=== PATIENT | female | born 1935 | race Caucasian/White ===

== ENCOUNTER → 2018-03-13 | Outpatient (CLI) | payer MEDICARE, OTHER ==
[~2018-03-13] MED LIST: ACET325 PO; AMLO5 PO; ASCO500; ASPI325; ASPI325 PO; ATEN50 PO; ATOR10; ATOR20 PO; CLON.1; CLON.1TP; CLOP75 PO; DIAZIDE; DIGESTIVE ADVANTAGE PO; DIGO.125 PO; FURO40 PO; GLUC500; HEART MED; HYDACE5; LACT10SY PO; LEVSOD100; LEVSOD137 PO; LISI20 PO; MAGCIT300 PO; METO25ER; MSM1000; POTA10T; POTA10T PO; SPIHYD; TOCO400; WARF5
[2018-03-15 13:08] LABS: Stool Occult Bld Immuno 1 Positive (NEGATIVE)
== END | disposition home or self-care (01) ==
LOC: LAB EV 13:00
PROVIDERS: Internal Medicine Gastroenterology
DX: Z13.9 Encounter for screening, unspecified (principal); K76.0 Fatty (change of) liver, not elsewhere classified; R19.4 Change in bowel habit; R11.2 Nausea with vomiting, unspecified
CPT/HCPCS: 82274

== ENCOUNTER → 2018-03-16 | Outpatient (CLI) | payer MEDICARE, OTHER ==
[2018-03-17 13:08] LABS: Stool Occult Bld Immuno 1 Positive (NEGATIVE)
== END | disposition home or self-care (01) ==
LOC: LAB 07:19 → LAB SHORT 07:19
PROVIDERS: Internal Medicine Gastroenterology
DX: Z13.9 Encounter for screening, unspecified (principal); K76.0 Fatty (change of) liver, not elsewhere classified; R11.2 Nausea with vomiting, unspecified; R19.4 Change in bowel habit
CPT/HCPCS: 82274

== ENCOUNTER → 2018-03-17 | Outpatient (CLI) | payer MEDICARE, OTHER ==
[2018-03-20 07:12] LABS: 5-HIAA, URINE 1.7 mg/L (Undefined); CREATININE, URINE 37.6 mg/dL (Not Estab.)
== END | disposition home or self-care (01) ==
LOC: LAB EV 08:00 → LAB FUT 03-04 10:45
PROVIDERS: Internal Medicine Gastroenterology
DX: Z13.9 Encounter for screening, unspecified (principal); R19.4 Change in bowel habit; R11.2 Nausea with vomiting, unspecified; K76.0 Fatty (change of) liver, not elsewhere classified
CPT/HCPCS: 81050; 82274; 82570; 83497

== ENCOUNTER 2018-08-15 09:58 | Emergency (ER) | payer MEDICARE, OTHER ==
[~2018-08-15] VITALS: Ht 182.9 cm; Wt 90.7 kg
[~2018-08-15 09:58] MED LIST changes: +ANORO ELLIPTA1 EACH; +CARV25 PO; +Coumadin5 MG PO; +MOTION RELIEF25 MG PO
[2018-08-15 10:17] LABS: BASOPHILS ABSOLUTE AUTO 0.02 K/mm3 (0.00-0.23); BASOPHILS PERCENT AUTO 0 % (0-2); EOSINOPHILS ABSOLUTE AUTO 0.08 K/mm3 (0.00-0.68); EOSINOPHILS PERCENT AUTO 2 % (0-6); Hematocrit 36.1 % (33.0-51.0); Hemoglobin 11.9 g/dL (11.5-16.0); IMMATURE GRAN ABSOLUTE AUTO 0.02 K/mm3 (0.00-0.10); IMMATURE GRAN PERCENT AUTO 0 % (0-1); LYMPHOCYTES ABSOLUTE AUTO 0.75 K/mm3 (0.84-5.20); LYMPHOCYTES PERCENT AUTO 17 % (21-46); MONOCYTES ABSOLUTE AUTO 0.44 K/mm3 (0.16-1.47); MONOCYTES PERCENT AUTO 10 % (4-13); Mean Corpuscular HGB 32.2 pg (26.0-34.0); Mean Corpuscular Volume 98 fL (80-100); Mean Platelet Volume 9.6 fL (9.1-12.4); NEUTROPHILS ABSOLUTE AUTO 3.22 K/mm3 (1.96-9.15); NEUTROPHILS PERCENT AUTO 71 % (41-73); Platelet Count 179 K/mm3 (150-400); RDW Coefficient Variation 14.1 % (11.7-14.2); RDW Standard Deviation 50.8 fL (35.1-46.3); Red Blood Cell Count 3.69 M/mm3 (3.80-5.20); White Blood Cell Count 4.53 K/mm3 (4.00-11.30)
[2018-08-15 10:35] LABS: Alanine Aminotransfer (ALT/SGP 14 U/L (12-78); Albumin, Blood 3.1 g/dL (3.4-5.0); Alk Phos 41 U/L (50-136); Anion Gap 6 mmol/L (6-16); Aspartate Aminotrans (AST/SGOT 12 U/L (12-37); Bilirubin, Total 0.5 mg/dL (0.1-1.0); Blood Urea Nitrogen 13 mg/dL (8-24); Bun/Creatinine Ratio 20.8 (12.0-20.0); CO2, Blood 26 mmol/L (21-32); Calcium, Blood 8.8 mg/dL (8.5-10.1); Chloride, Blood 111 mmol/L (98-108); Creatinine, Blood 0.63 mg/dL (0.40-1.00); Globulin, Blood 3.2 g/dL (2.2-4.0); Glomerular Filtration Rate >60 (60-); Glucose, Blood 118 mg/dL (70-99); Potassium, Blood 3.7 mmol/L (3.5-5.5); Sodium, Blood 143 mmol/L (136-145); Total Protein, Blood 6.3 g/dL (6.4-8.2)
[2018-08-15] MEDS ORDERED: Zithromax250 MG PO (12:23)
== END 2018-08-15 13:57 | disposition home or self-care (01) ==
LOC: ER 09:58
PROVIDERS: Internal Medicine
DX: J18.1 Lobar pneumonia, unspecified organism (principal); Z88.0 Allergy status to penicillin; Z88.2 Allergy status to sulfonamides; Z91.040 Latex allergy status; Z91.048 Other nonmedicinal substance allergy status; Z79.899 Other long term (current) drug therapy; Z79.01 Long term (current) use of anticoagulants; I10 Essential (primary) hypertension; E03.9 Hypothyroidism, unspecified; I48.91 Unspecified atrial fibrillation; Z86.73 Personal history of transient ischemic attack (TIA), and cerebral infarction without residual deficits; Z87.891 Personal history of nicotine dependence
CPT/HCPCS: 71046; 80053; 85025; 93005; 93010; 94640; 96365; 99285-25; J0456; J7050

== ENCOUNTER 2018-08-26 00:11 | Day surgery (SDC) | payer MEDICARE, OTHER ==
[~2018-08-26 00:11] MED LIST changes: +Zithromax250 MG PO
[2018-08-26] MEDS ORDERED: Align4 MG PO (18:52)
== END 2018-08-26 14:12 | disposition home or self-care (01) ==
LOC: ATC 00:11
DX: I48.2 Chronic atrial fibrillation (principal); I71.4 Abdominal aortic aneurysm, without rupture; Z86.711 Personal history of pulmonary embolism
CPT/HCPCS: 96372; J1650

== ENCOUNTER 2018-08-27 01:56 | Day surgery (SDC) | payer MEDICARE, OTHER ==
[~2018-08-27 01:56] MED LIST changes: +Align4 MG PO
== END 2018-08-27 08:45 | disposition home or self-care (01) ==
LOC: ATC 01:56
DX: I48.2 Chronic atrial fibrillation (principal); I71.4 Abdominal aortic aneurysm, without rupture; Z86.711 Personal history of pulmonary embolism; Z79.01 Long term (current) use of anticoagulants
CPT/HCPCS: 96372; J1650

== ENCOUNTER 2018-08-28 08:13 | Day surgery (SDC) | payer MEDICARE, OTHER ==
--- NOTE | 2018-08-28 08:38 | NUR ---
INR WAS 1.3 ON ATC MACHINE.
== END 2018-08-28 08:35 | disposition home or self-care (01) ==
LOC: ATC 08:13
DX: I48.2 Chronic atrial fibrillation (principal); I71.4 Abdominal aortic aneurysm, without rupture; Z86.711 Personal history of pulmonary embolism; Z79.01 Long term (current) use of anticoagulants
CPT/HCPCS: 36416; 85610; 96372; J1650

== ENCOUNTER → 2019-03-11 | Outpatient (CLI) | payer MEDICARE, OTHER | END | disposition home or self-care (01) | LOC: LAB 09:12 → LAB SHORT 09:12 | DX: N30.01 Acute cystitis with hematuria (principal); R35.0 Frequency of micturition | CPT/HCPCS: 87077; 87086; 87186 ==

== ENCOUNTER 2019-05-06 21:50 | Inpatient (IN) | payer MEDICARE, OTHER ==
[~2019-05-06] VITALS: Ht 182.9 cm; Wt 92.0 kg
[2019-05-06] MEDS ORDERED: WARF5 PO ×2 (22:15→22:17)
[2019-05-06] MEDS ORDERED: WARF2.5 PO (22:16)
[2019-05-06 22:48] LABS: BASOPHILS ABSOLUTE AUTO 0.01 K/mm3 (0.00-0.23); BASOPHILS PERCENT AUTO 0 % (0-2); EOSINOPHILS PERCENT AUTO 0 % (0-6); Hematocrit 42.7 % (33.0-51.0); Hemoglobin 14.1 g/dL (11.5-16.0); IMMATURE GRAN ABSOLUTE AUTO 0.04 K/mm3 (0.00-0.10); IMMATURE GRAN PERCENT AUTO 0 % (0-1); LYMPHOCYTES ABSOLUTE AUTO 0.83 K/mm3 (0.84-5.20); LYMPHOCYTES PERCENT AUTO 8 % (21-46); MONOCYTES ABSOLUTE AUTO 0.52 K/mm3 (0.16-1.47); MONOCYTES PERCENT AUTO 5 % (4-13); Mean Corpuscular HGB 30.3 pg (26.0-34.0); Mean Corpuscular Volume 92 fL (80-100); Mean Platelet Volume 10.5 fL (9.1-12.4); NEUTROPHILS ABSOLUTE AUTO 8.76 K/mm3 (1.96-9.15); NEUTROPHILS PERCENT AUTO 86 % (41-73); Platelet Count 211 K/mm3 (150-400); RDW Coefficient Variation 14.1 % (11.7-14.2); RDW Standard Deviation 47.4 fL (35.1-46.3); Red Blood Cell Count 4.65 M/mm3 (3.80-5.20); White Blood Cell Count 10.16 K/mm3 (4.00-11.30)
[2019-05-06 23:00] LABS: Alanine Aminotransfer (ALT/SGP 13 U/L (12-78); Albumin, Blood 3.8 g/dL (3.4-5.0); Alk Phos 56 U/L (50-136); Anion Gap 6 mmol/L (6-16); Aspartate Aminotrans (AST/SGOT 29 U/L (12-37); Bilirubin, Total 0.5 mg/dL (0.1-1.0); Blood Urea Nitrogen 23 mg/dL (8-24); Bun/Creatinine Ratio 35.6 (12.0-20.0); CO2, Blood 28 mmol/L (21-32); Calcium, Blood 9.8 mg/dL (8.5-10.1); Chloride, Blood 107 mmol/L (98-108); Creatinine, Blood 0.65 mg/dL (0.40-1.00); Globulin, Blood 3.8 g/dL (2.2-4.0); Glomerular Filtration Rate >60 (60-); Glucose, Blood 129 mg/dL (70-99); Potassium, Blood 4.5 mmol/L (3.5-5.5); Sodium, Blood 141 mmol/L (136-145); Total Protein, Blood 7.6 g/dL (6.4-8.2)
[2019-05-06 23:41] LABS: International Normalized Ratio 1.84
[2019-05-07 05:38] LABS: Anion Gap 5 mmol/L (6-16); Blood Urea Nitrogen 23 mg/dL (8-24); CO2, Blood 29 mmol/L (21-32); Calcium, Blood 9.2 mg/dL (8.5-10.1); Chloride, Blood 107 mmol/L (98-108); Glomerular Filtration Rate >60 (60-); Glucose, Blood 125 mg/dL (70-99); Potassium, Blood 4.4 mmol/L (3.5-5.5); Sodium, Blood 141 mmol/L (136-145)
--- NOTE | 2019-05-07 07:47 | NUR ---
SUMMARY ADMITTED TONIGHT FOR SURGICAL CX REGARDING SBO. PT HAS REFUSED NG SINCE ER. NOW WITH EMESIS AND NO FLATUS,FEELS SHE MAY AGREE TO TUBE.
--- NOTE | 2019-05-07 11:22 | NUR ---
THERAPY: PT IN ROOM TO WORK WITH PATIENT.
--- NOTE | 2019-05-07 17:55 | NUR ---
PT HAS BEEN STABLE THIS SHIFT. PAIN MANAGED PER EMAR. PT MIN ASSIST OOB WITH WALKER. PT VOIDING WITH BSC. ATTENDS ON FOR COMFORT. NGT TO LIS WITH PALE YELLOW OUTPUT OF 400CC. NO FLATUS. PT HAD EMESIS AROUND TUBE THIS AM BUT HAS RESOLVED AFTER PRN NAUSEA MEDS. CONT IV FLUIDS ORDERED. PT ABLE TO HAVE ICE CHIPS. PAS TO BLE. PT WORKED WITH THERAPY WELL THIS AM. USES CALL LIGHT APPROPRIATELY. PLAN FOR SMALL BOWEL FOLLOW THROUGH THURSDAY.
[2019-05-07] MEDS ORDERED: FURO40 PO (18:01)
[2019-05-07] MEDS ORDERED: Vitamin D2000 UNIT PO (18:04)
[2019-05-07] MEDS ORDERED: ACET325 PO (18:05)
[2019-05-07] MEDS ORDERED: ANORO ELLIPTA1 EACH INH (18:05)
[2019-05-07] MEDS ORDERED: TUMERIC PO (18:06)
[2019-05-07] MEDS ORDERED: DOCU100 PO (18:08)
[2019-05-07] MEDS ORDERED: ALIGN PO (18:08)
--- NOTE | 2019-05-08 06:55 | NUR ---
SUMMARY PT WOKE WITH "NO PAIN" ABD REMAINS DISTENDED. NO FLATUS. NG REMAINS PATENT.
--- NOTE | 2019-05-08 17:05 | NUR ---
SUMMARY NO ACUTE CHANGES T/O SHIFT. PT HAS DENIED N/V AND PAIN T/O SHIFT. PT REPORTS PASSING FLATUS. MINIMAL OUTPUT FROM NG TUBE OF DARK GREEN. DAUGHTER AT BEDSIDE. CALL LIGHT IN REACH.
[2019-05-09 05:22] LABS: BASOPHILS ABSOLUTE AUTO 0.01 K/mm3 (0.00-0.23); BASOPHILS PERCENT AUTO 0 % (0-2); EOSINOPHILS ABSOLUTE AUTO 0.05 K/mm3 (0.00-0.68); EOSINOPHILS PERCENT AUTO 1 % (0-6); Hematocrit 37.9 % (33.0-51.0); Hemoglobin 12.2 g/dL (11.5-16.0); IMMATURE GRAN ABSOLUTE AUTO 0.02 K/mm3 (0.00-0.10); IMMATURE GRAN PERCENT AUTO 1 % (0-1); LYMPHOCYTES ABSOLUTE AUTO 0.91 K/mm3 (0.84-5.20); LYMPHOCYTES PERCENT AUTO 22 % (21-46); MONOCYTES ABSOLUTE AUTO 0.36 K/mm3 (0.16-1.47); MONOCYTES PERCENT AUTO 9 % (4-13); Mean Corpuscular HGB 30.6 pg (26.0-34.0); Mean Corpuscular HGB Conc 32.2 g/dL (31.5-36.5); NEUTROPHILS ABSOLUTE AUTO 2.89 K/mm3 (1.96-9.15); NEUTROPHILS PERCENT AUTO 68 % (41-73); Platelet Count 151 K/mm3 (150-400); RDW Coefficient Variation 13.9 % (11.7-14.2); RDW Standard Deviation 48.7 fL (35.1-46.3); Red Blood Cell Count 3.99 M/mm3 (3.80-5.20); White Blood Cell Count 4.24 K/mm3 (4.00-11.30)
[2019-05-09 05:24] LABS: Mean Corpuscular Volume 95 fL (80-100)
[2019-05-09 05:59] LABS: Anion Gap 6 mmol/L (6-16); Blood Urea Nitrogen 21 mg/dL (8-24); Bun/Creatinine Ratio 29.4 (12.0-20.0); CO2, Blood 29 mmol/L (21-32); Calcium, Blood 8.4 mg/dL (8.5-10.1); Chloride, Blood 108 mmol/L (98-108); Creatinine, Blood 0.71 mg/dL (0.40-1.00); Glomerular Filtration Rate >60 (60-); Glucose, Blood 87 mg/dL (70-99); Potassium, Blood 4.1 mmol/L (3.5-5.5); Sodium, Blood 143 mmol/L (136-145)
--- NOTE | 2019-05-09 06:48 | NUR ---
SUMMARY PT WISHING SBFT WILL OCCUR SOON SHE IS HOPEFUL TO POSSIBLY BE ALLOWED PO INTAKE? PT DENIED PAIN,NAUSEA TONIGHT.REPORTS CONT TO PASS FLATUS,NG DRNG REMAINS BILE GREEN. DAUGHTER AT BEDSIDE. SUPPORTIVE.
--- NOTE | 2019-05-09 09:00 | NUR ---
PT TO IMAGING FOR SBFT.
--- NOTE | 2019-05-09 16:34 | NUR ---
SHIFT SUMMARY SB FOLLOW THROUGH COMPLETED TODAY. PT CONT TO DO WELL. NGT CLAMPED THIS AFTERNOON AND PT TANNER WELL, SO NGT DC'D PER DR. MARY ORDERS AT THIS TIME. PT SLOWLY TANNER CLEAR LIQ DIET AND REPORTS PASSING GAS. HAVING LIQ BMS. DENIES ABD PAIN. IVF INFUSING PER ORDERS. PT UP IN CHAIR AND FAMILY AT BEDSIDE FOR SUPPORT. CALL LIGHT WITHIN REACH.
--- NOTE | 2019-05-10 01:25 | NUR ---
PT C/O "UNBEARABLE" PAIN SECONDARY TO NASAL ROCKET. PULLED 0.2 CC AIR FROM ROCKET. PT REPORTS RELIEF. PT REPORTS SCANT BLOOD FROM NOSE, DENIES FEELING BLOOD RUNNING DOWN THE BACK OF HER THROAT.
--- NOTE | 2019-05-10 03:46 | NUR ---
SHIFT SUMMARY: UMM RESTED VERY LITTLE DURING THE NIGHT. SHE HAS STRUGGLED WITH A NOSE BLEED THAT STARTED AFTER HER NG TUBE WAS PULLED YESTERDAY AFTERNOON. AFTER NURSING INTERVENTIONS FAILED, EYAD OCONNOR, RODRIGO PRESCRIBED AFRIN WHICH WAS ALSO UNSUCCESSFUL. EYAD PLACED A RHINO ROCKET IN THE RIGHT NARE WHICH SLOWED THE BLEEDING CONSIDERABLY AND UMM REPORTED THAT SHE NO LONGER FELT BLOOD TRICKLING DOWN HER THROAT. THIS NURSE REMOVED A SMALL AMOUNT OF AIR FROM THE ROCKET D/T PT COMPLAINTS OF "UNBEARABLE" PAIN AND PRESSURE. UMM HAS REPORTED ADEQUATE PAIN CONTROL WITH 0.5 MG DILAUDID IV. SHE IS ABLE TO MAKE HER NEEDS KNOWN. DAUGHTER AT BEDSIDE. SHE IS TOLERATING THE CLEAR LIQUID DIET WELL. SHE DENIES N/V. SHE IS A ONE PERSON ASSIST TO THE BATHROOM. ATTENDS IN PLACE FOR URGENCY/OCCASIONAL INCONTINENCE. PT IS HOPING TO GO HOME TODAY, BUT IS CONCERNED ABOUT THE BLEEDING PREVENTING HER FROM DOING SO. WILL REPORT TO DAY SHIFT RN.
--- NOTE | 2019-05-10 11:20 | NUR ---
RHINO ROCKET REMOVED FROM RIGHT NARE AT THIS TIME. PT TOLERATED WELL. SCANT AMOUNT OF RED NASAL DRAINAGE PRESENT.
--- NOTE | 2019-05-10 13:03 | NUR ---
ATTEMPTED TO CALL DR. MARY.
--- NOTE | 2019-05-10 13:29 | NUR ---
PT AND DAUGHTER EDUCATED ON HOW TO ADMINISTER LOVENOX INJECTIONS FOR HOME DISCHARGE. DAUGHTER VERBALIZED UNDERSTANDING OF HOW TO DO INJECTION THEN DEMONSTRATED.
--- NOTE | 2019-05-10 15:07 | NUR ---
Advance Directive education conducted. Patient is lying in bed and alert. Patient has gauze in her nose and explains that she has had a terrible nose bleed. Patient's daughter, Alivia is bedside. I explain about the importance and process of the Advance Directive and patient explains that she already has one on file at another hospital. I talk about the sections in the booklet and the importance of having the information in our records. They tell me that they will fill out the forms and return them to the hospital when patient returns this Thursday.
--- NOTE | 2019-05-10 16:16 | NUR ---
SHIFT SUMMARY SINCE REMOVAL OF RHINO ROCKET, PT HAS HAD SCANT NASAL BLEEDING. MEDICATING WITH ORAL TYLENOL FOR NOSE/HEAD PAIN R/T TO THE RHINO ROCKET. PT DENIES ABD PAIN. REPORTS PASSING GAS. TANNER REG DIET. UP WITH 1 SBA ASSIST TO BSC AND IS IN CHAIR CURRENTLY. POSSIBLE DC HOME THIS EVENING OR TOMORROW. DAUGHTER AT BEDSIDE FOR MOST OF DAY. CALL LIGHT WITHIN REACH.
[2019-05-10] MEDS ORDERED: Lovenox100 MG/1 M SC (17:08)
[2019-05-10] MEDS ORDERED: DEEP SEA44 ML (17:09)
--- NOTE | 2019-05-10 17:40 | NUR ---
DISCHARGE PT AND DAUGHTER EDUCATED ON AND RECEIVED PRINTED DISCHARGE INSTRUCTIONS AND VERB AN UNDERSTANDING. RX FOR LOVENOX FAXED TO [facility] PER PT REQUEST. HECTOR ORDERS FAXED TO [facility]. IV DC'D. PT SENT WITH ALCOHOL SWABS, GLOVES AND GAUZE. PT FINISHING DINNER AND THEN PLANS TO GET DRESSED AND GATHERING PERSONAL BELONGINGS TO GO HOME WITH.
== END 2019-05-10 17:55 | disposition home or self-care (01) | DRG 389 ==
LOC: ER 21:50 → SURS 05-07 02:22
PROVIDERS: Emergency Medicine; Hospitalist; ADMIT Internal Medicine
PROC: 0D9670Z Drainage of Stomach with Drainage Device, Via Natural or Artificial Opening (ICD-10-PCS; principal; 2019-05-07)
DX: K56.609 Unspecified intestinal obstruction, unspecified as to partial versus complete obstruction (principal); I48.20 Chronic atrial fibrillation, unspecified; I10 Essential (primary) hypertension; E03.9 Hypothyroidism, unspecified; J44.9 Chronic obstructive pulmonary disease, unspecified; Z88.0 Allergy status to penicillin; Z88.2 Allergy status to sulfonamides; Z79.01 Long term (current) use of anticoagulants; Z86.718 Personal history of other venous thrombosis and embolism; Z87.891 Personal history of nicotine dependence; Z88.5 Allergy status to narcotic agent; Z91.040 Latex allergy status; Z86.73 Personal history of transient ischemic attack (TIA), and cerebral infarction without residual deficits
CPT/HCPCS: 36415; 74177; 74250; 80048; 80053; 83690; 85025; 85610; 93005; 93010; 96361; 96374; 96375; 96376; 97110; 97116; 97162; 97530; 99285-25; A9270; J1170; J1650; J1885; J2405; J2765; J3480; J7120; Q9963; Q9967

== ENCOUNTER 2019-05-13 01:02 | Day surgery (SDC) | payer MEDICARE, OTHER ==
[~2019-05-13 01:02] MED LIST changes: +ALIGN PO; +ANORO ELLIPTA1 EACH INH; +DEEP SEA44 ML; +DOCU100 PO; +Lovenox100 MG/1 M SC; +TUMERIC PO; +Vitamin D2000 UNIT PO; +WARF2.5 PO; +WARF5 PO
--- NOTE | 2019-05-13 08:49 | NUR ---
LOVENOX 40MG DOSE: FINGER STICK INR IS 1.6 TODAY BARCODE WILL NOT SCAN ON 40MG, PT RECIEVES 35MG OF THIS DOSE WITH THE 100MG TOTALING 135MG OF LOVENOX
== END 2019-05-13 08:54 | disposition home or self-care (01) ==
LOC: ATC 01:02
DX: I48.11 Longstanding persistent atrial fibrillation (principal); Z88.0 Allergy status to penicillin; Z88.2 Allergy status to sulfonamides; Z88.5 Allergy status to narcotic agent; Z91.040 Latex allergy status; Z91.048 Other nonmedicinal substance allergy status
CPT/HCPCS: 36416; 85610; J1650

== ENCOUNTER 2019-05-14 02:17 | Day surgery (SDC) | payer MEDICARE, OTHER | END 2019-05-14 14:31 | disposition home or self-care (01) | LOC: ATC 02:17 | DX: I48.11 Longstanding persistent atrial fibrillation (principal) | CPT/HCPCS: 36416; 85610; 96372; J1650 ==

== ENCOUNTER 2019-05-17 00:35 | Day surgery (SDC) | payer MEDICARE, OTHER | END 2019-05-17 12:00 | disposition home or self-care (01) | LOC: ATC 00:35 | DX: I48.20 Chronic atrial fibrillation, unspecified (principal); I10 Essential (primary) hypertension; E03.9 Hypothyroidism, unspecified; Z88.2 Allergy status to sulfonamides; Z88.0 Allergy status to penicillin; Z88.5 Allergy status to narcotic agent; Z91.040 Latex allergy status; Z88.8 Allergy status to other drugs, medicaments and biological substances; Z87.891 Personal history of nicotine dependence; Z79.01 Long term (current) use of anticoagulants; Z79.899 Other long term (current) drug therapy; K56.609 Unspecified intestinal obstruction, unspecified as to partial versus complete obstruction ==

== ENCOUNTER → 2019-09-02 | Outpatient (CLI) | payer MEDICARE, OTHER | END | disposition home or self-care (01) | LOC: LAB SHORT 08:35 → LAB 08:35 | DX: N30.00 Acute cystitis without hematuria (principal) | CPT/HCPCS: 87077; 87086; 87186 ==

== ENCOUNTER 2019-12-19 10:23 | Emergency (ER) | payer MEDICARE, OTHER ==
[~2019-12-19] VITALS: Ht 182.9 cm; Wt 85.3 kg
[2019-12-19 11:10] LABS: BASOPHILS ABSOLUTE AUTO 0.01 K/mm3 (0.00-0.23); BASOPHILS PERCENT AUTO 0 % (0-2); EOSINOPHILS ABSOLUTE AUTO 0.06 K/mm3 (0.00-0.68); EOSINOPHILS PERCENT AUTO 2 % (0-6); Hematocrit 40.4 % (33.0-51.0); Hemoglobin 13.1 g/dL (11.5-16.0); IMMATURE GRAN ABSOLUTE AUTO 0.01 K/mm3 (0.00-0.10); IMMATURE GRAN PERCENT AUTO 0 % (0-1); LYMPHOCYTES ABSOLUTE AUTO 0.89 K/mm3 (0.84-5.20); LYMPHOCYTES PERCENT AUTO 24 % (21-46); MONOCYTES ABSOLUTE AUTO 0.28 K/mm3 (0.16-1.47); MONOCYTES PERCENT AUTO 8 % (4-13); Mean Corpuscular HGB 30.3 pg (26.0-34.0); Mean Corpuscular HGB Conc 32.4 g/dL (31.5-36.5); Mean Corpuscular Volume 94 fL (80-100); NEUTROPHILS ABSOLUTE AUTO 2.45 K/mm3 (1.96-9.15); NEUTROPHILS PERCENT AUTO 66 % (41-73); Platelet Count 181 K/mm3 (150-400); RDW Coefficient Variation 13.8 % (11.7-14.2); RDW Standard Deviation 47.6 fL (35.1-46.3); Red Blood Cell Count 4.32 M/mm3 (3.80-5.20)
[2019-12-19 11:19] LABS: Alanine Aminotransfer (ALT/SGP 13 U/L (12-78); Albumin, Blood 3.5 g/dL (3.4-5.0); Albumin/Globulin Ratio 0.9 (0.8-1.8); Alk Phos 59 U/L (50-136); Anion Gap 4 mmol/L (6-16); Aspartate Aminotrans (AST/SGOT 15 U/L (12-37); Bilirubin, Total 0.5 mg/dL (0.1-1.0); Blood Urea Nitrogen 14 mg/dL (8-24); Bun/Creatinine Ratio 20.4 (12.0-20.0); CO2, Blood 29 mmol/L (21-32); Calcium, Blood 9.3 mg/dL (8.5-10.1); Chloride, Blood 110 mmol/L (98-108); Creatinine, Blood 0.69 mg/dL (0.40-1.00); Globulin, Blood 3.7 g/dL (2.2-4.0); Glomerular Filtration Rate >60 (60-); Glucose, Blood 107 mg/dL (70-99); Potassium, Blood 3.9 mmol/L (3.5-5.5); Sodium, Blood 143 mmol/L (136-145); Total Protein, Blood 7.2 g/dL (6.4-8.2)
[2019-12-19] MEDS ORDERED: SALM50IP INH (11:28)
[2019-12-19 12:22] LABS: Source, Urine Voided
[2019-12-19 12:27] LABS: Appearance, Urine Hazy (Clear); Bilirubin, Urine Neg (Neg); Blood, Urine 2+ (Neg); Color, Urine Yellow (P-Yellow); Glucose Qualitative, Urine Neg (Neg); Ketones, Urine Neg (Neg); Leukocyte Esterase, Urine 3+ (Neg); Nitrite, Urine Pos (Neg); Protein, Urine 2+ (Neg); Urobilinogen, Urine NORM (Normal)
[2019-12-19 12:56] LABS: Bacteria Many /hpf; Squamous Epithelial Cells Few /hpf (Few); White Blood Cells, Urine TNTC /hpf (0-5)
[2019-12-19] MEDS ORDERED: Colace100 MG PO (18:16)
[2019-12-19] MEDS ORDERED: Miralax17 GM PO (18:16)
[2019-12-19] MEDS ORDERED: KEFLEX500 MG PO (18:16)
[2019-12-19 18:33] LABS: International Normalized Ratio 2.04
== END 2019-12-19 18:45 | disposition home or self-care (01) ==
LOC: ER 10:23
PROVIDERS: Emergency Medicine
DX: N39.0 Urinary tract infection, site not specified (principal); K59.00 Constipation, unspecified; K76.89 Other specified diseases of liver; T82.330A Leakage of aortic (bifurcation) graft (replacement), initial encounter; D72.819 Decreased white blood cell count, unspecified; I10 Essential (primary) hypertension; E03.9 Hypothyroidism, unspecified; I48.91 Unspecified atrial fibrillation; Z88.0 Allergy status to penicillin; Z88.2 Allergy status to sulfonamides; Z91.040 Latex allergy status; Z88.5 Allergy status to narcotic agent; Z91.09 Other allergy status, other than to drugs and biological substances; Z79.01 Long term (current) use of anticoagulants; Z79.899 Other long term (current) drug therapy; Z86.73 Personal history of transient ischemic attack (TIA), and cerebral infarction without residual deficits
CPT/HCPCS: 36415; 74177; 80053; 81001; 83605; 83690; 84484; 85025; 85610; 87077; 87086; 87186; 93005; 93010; 96361; 96365; 96366; 99284-25; A9270-GY; J0744; J7030; Q9967

== ENCOUNTER 2020-10-30 22:54 | Emergency (ER) | payer MEDICARE, OTHER ==
[~2020-10-30] VITALS: Ht 182.9 cm; Wt 86.2 kg
[~2020-10-30 22:54] MED LIST changes: +Colace100 MG PO; +KEFLEX500 MG PO; +Miralax17 GM PO; +SALM50IP INH
[2020-10-30 23:20] LABS: BASOPHILS ABSOLUTE AUTO 0.02 K/mm3 (0.00-0.23); BASOPHILS PERCENT AUTO 0 % (0-2); EOSINOPHILS ABSOLUTE AUTO 0.08 K/mm3 (0.00-0.68); EOSINOPHILS PERCENT AUTO 1 % (0-6); Hematocrit 42.2 % (33.0-51.0); Hemoglobin 14.1 g/dL (11.5-16.0); IMMATURE GRAN ABSOLUTE AUTO 0.03 K/mm3 (0.00-0.10); IMMATURE GRAN PERCENT AUTO 0 % (0-1); LYMPHOCYTES ABSOLUTE AUTO 0.86 K/mm3 (0.84-5.20); LYMPHOCYTES PERCENT AUTO 9 % (21-46); MONOCYTES ABSOLUTE AUTO 0.67 K/mm3 (0.16-1.47); MONOCYTES PERCENT AUTO 7 % (4-13); Mean Corpuscular HGB 30.6 pg (26.0-34.0); Mean Corpuscular HGB Conc 33.4 g/dL (31.5-36.5); Mean Corpuscular Volume 92 fL (80-100); Mean Platelet Volume 9.6 fL (9.1-12.4); NEUTROPHILS ABSOLUTE AUTO 8.04 K/mm3 (1.96-9.15); NEUTROPHILS PERCENT AUTO 83 % (41-73); Platelet Count 209 K/mm3 (150-400); RDW Standard Deviation 47.2 fL (35.1-46.3); Red Blood Cell Count 4.61 M/mm3 (3.80-5.20)
[2020-10-30 23:33] LABS: Albumin, Blood 3.3 g/dL (3.4-5.0); Albumin/Globulin Ratio 0.9 (0.8-1.8); Bilirubin, Total 0.8 mg/dL (0.1-1.0); Bun/Creatinine Ratio 24.1 (12.0-20.0); Calcium, Blood 9.4 mg/dL (8.5-10.1); Globulin, Blood 3.5 g/dL (2.2-4.0); Potassium, Blood 4.3 mmol/L (3.5-5.5); Total Protein, Blood 6.8 g/dL (6.4-8.2)
[2020-10-31 04:36] LABS: Source, Urine Voided
[2020-10-31 04:40] LABS: Appearance, Urine Clear (Clear); Bilirubin, Urine Neg (Neg); Blood, Urine 4+ (Neg); Color, Urine Red (P-Yellow); Glucose Qualitative, Urine Neg (Neg); Ketones, Urine Neg (Neg); Leukocyte Esterase, Urine 1+ (Neg); Nitrite, Urine Neg (Neg); Protein, Urine 3+ (Neg); Specific Gravity, Urine 1.005 (1.003-1.022); Urobilinogen, Urine 1+ (Normal)
[2020-10-31 04:43] LABS: Squamous Epithelial Cells Few /hpf (Few)
[2020-10-31 04:44] LABS: Amorphous Light (0-Heavy); Bacteria Few /hpf
[2020-10-31] MEDS ORDERED: ONDA4ODT MM (05:47)
[2020-10-31] MEDS ORDERED: DICY20 PO (05:47)
[2020-11-01] MEDS ORDERED: Bentyl20 MG PO (11:45)
[2020-11-01] MEDS ORDERED: HIPREX1 G1 PO (11:45)
[2020-11-01] MEDS ORDERED: ONDANSETRON TAB 4MG (11:46)
[2020-11-01] MEDS ORDERED: ONDA4ODT SL (14:57)
[2020-11-01] MEDS ORDERED: PROM25 PO (14:57)
== END 2020-10-31 09:20 | disposition home or self-care (01) ==
LOC: ER 22:54
PROVIDERS: Emergency Medicine
DX: R10.9 Unspecified abdominal pain (principal); R11.2 Nausea with vomiting, unspecified; K59.00 Constipation, unspecified; E03.9 Hypothyroidism, unspecified; I10 Essential (primary) hypertension; Z88.0 Allergy status to penicillin; Z88.2 Allergy status to sulfonamides; Z91.040 Latex allergy status; Z91.048 Other nonmedicinal substance allergy status; Z88.5 Allergy status to narcotic agent; Z79.01 Long term (current) use of anticoagulants; Z79.899 Other long term (current) drug therapy; Z79.890 Hormone replacement therapy
CPT/HCPCS: 51701; 74177; 80053; 81001; 83690; 85025; 87086; 93005; 93010; 96374-59; 96375; 99285-25; J2270; J2405; J2550; J7030; Q9967

== ENCOUNTER 2020-11-01 11:38 | Emergency (ER) | payer MEDICARE, OTHER ==
[~2020-11-01] VITALS: Ht 182.9 cm; Wt 86.2 kg
[~2020-11-01 11:38] MED LIST changes: +DICY20 PO; +ONDA4ODT MM
[2020-11-01] MEDS ORDERED: Bentyl20 MG PO (11:45)
[2020-11-01] MEDS ORDERED: HIPREX1 G1 PO (11:45)
[2020-11-01] MEDS ORDERED: ONDANSETRON TAB 4MG (11:46)
[2020-11-01 13:46] LABS: BASOPHILS ABSOLUTE AUTO 0.01 K/mm3 (0.00-0.23); BASOPHILS PERCENT AUTO 0 % (0-2); EOSINOPHILS ABSOLUTE AUTO 0.02 K/mm3 (0.00-0.68); EOSINOPHILS PERCENT AUTO 0 % (0-6); Hematocrit 38.6 % (33.0-51.0); Hemoglobin 12.4 g/dL (11.5-16.0); IMMATURE GRAN ABSOLUTE AUTO 0.02 K/mm3 (0.00-0.10); IMMATURE GRAN PERCENT AUTO 0 % (0-1); LYMPHOCYTES ABSOLUTE AUTO 0.83 K/mm3 (0.84-5.20); LYMPHOCYTES PERCENT AUTO 12 % (21-46); MONOCYTES ABSOLUTE AUTO 0.69 K/mm3 (0.16-1.47); MONOCYTES PERCENT AUTO 10 % (4-13); Mean Corpuscular HGB 30.2 pg (26.0-34.0); Mean Corpuscular HGB Conc 32.1 g/dL (31.5-36.5); Mean Corpuscular Volume 94 fL (80-100); Mean Platelet Volume 10.1 fL (9.1-12.4); NEUTROPHILS ABSOLUTE AUTO 5.45 K/mm3 (1.96-9.15); NEUTROPHILS PERCENT AUTO 78 % (41-73); Platelet Count 154 K/mm3 (150-400); RDW Coefficient Variation 14.5 % (11.7-14.2); RDW Standard Deviation 50.8 fL (35.1-46.3); Red Blood Cell Count 4.11 M/mm3 (3.80-5.20); White Blood Cell Count 7.02 K/mm3 (4.00-11.30)
[2020-11-01 13:57] LABS: International Normalized Ratio 2.65; Prothrombin Time Results 27.1 Sec (9.7-11.5)
[2020-11-01 14:05] LABS: Bun/Creatinine Ratio 39.6 (12.0-20.0); Creatinine, Blood 0.93 mg/dL (0.40-1.00); Potassium, Blood 4.1 mmol/L (3.5-5.5)
[2020-11-01] MEDS ORDERED: ONDA4ODT SL (14:57)
[2020-11-01] MEDS ORDERED: PROM25 PO (14:57)
== END 2020-11-01 17:45 | disposition home or self-care (01) ==
LOC: ER 11:38
PROVIDERS: Emergency Medicine
DX: R11.2 Nausea with vomiting, unspecified (principal); E86.0 Dehydration; K58.1 Irritable bowel syndrome with constipation; I10 Essential (primary) hypertension; E03.9 Hypothyroidism, unspecified; Z88.0 Allergy status to penicillin; Z88.2 Allergy status to sulfonamides; Z91.040 Latex allergy status; Z88.5 Allergy status to narcotic agent; Z91.048 Other nonmedicinal substance allergy status; Z79.01 Long term (current) use of anticoagulants; Z79.899 Other long term (current) drug therapy; Z79.890 Hormone replacement therapy
CPT/HCPCS: 80048; 84443; 85025; 85610; 99283; J7030

== ENCOUNTER → 2020-11-28 | Outpatient (CLI) | payer MEDICARE, OTHER ==
[~2020-11-28] MED LIST changes: +Bentyl20 MG PO; +HIPREX1 G1 PO; +ONDA4ODT SL; +ONDANSETRON TAB 4MG; +PROM25 PO
[2020-11-28 12:09] LABS: BASOPHILS PERCENT AUTO 0 % (0-2); EOSINOPHILS PERCENT AUTO 0 % (0-6); Hematocrit 40.5 % (33.0-51.0); Hemoglobin 13.2 g/dL (11.5-16.0); IMMATURE GRAN ABSOLUTE AUTO 0.02 K/mm3 (0.00-0.10); IMMATURE GRAN PERCENT AUTO 0 % (0-1); LYMPHOCYTES ABSOLUTE AUTO 0.68 K/mm3 (0.84-5.20); LYMPHOCYTES PERCENT AUTO 14 % (21-46); MONOCYTES ABSOLUTE AUTO 0.28 K/mm3 (0.16-1.47); MONOCYTES PERCENT AUTO 6 % (4-13); Mean Corpuscular HGB Conc 32.6 g/dL (31.5-36.5); Mean Corpuscular Volume 92 fL (80-100); Mean Platelet Volume 9.6 fL (9.1-12.4); NEUTROPHILS ABSOLUTE AUTO 3.84 K/mm3 (1.96-9.15); NEUTROPHILS PERCENT AUTO 80 % (41-73); Platelet Count 179 K/mm3 (150-400); RDW Coefficient Variation 14.4 % (11.7-14.2); RDW Standard Deviation 49.1 fL (35.1-46.3); White Blood Cell Count 4.82 K/mm3 (4.00-11.30)
[2020-11-28 12:25] LABS: Alanine Aminotransfer (ALT/SGP 17 U/L (12-78); Albumin, Blood 3.4 g/dL (3.4-5.0); Albumin/Globulin Ratio 0.8 (0.8-1.8); Alk Phos 50 U/L (50-136); Anion Gap 5 mmol/L (6-16); Aspartate Aminotrans (AST/SGOT 12 U/L (12-37); Bilirubin, Total 0.5 mg/dL (0.1-1.0); Blood Urea Nitrogen 18 mg/dL (8-24); Bun/Creatinine Ratio 25.3 (12.0-20.0); CO2, Blood 27 mmol/L (21-32); Calcium, Blood 9.8 mg/dL (8.5-10.1); Chloride, Blood 108 mmol/L (98-108); Creatinine, Blood 0.71 mg/dL (0.40-1.00); Globulin, Blood 4.3 g/dL (2.2-4.0); Glomerular Filtration Rate >60 (60-); Glucose, Blood 131 mg/dL (70-99); Potassium, Blood 4.2 mmol/L (3.5-5.5); Sodium, Blood 140 mmol/L (136-145); Total Protein, Blood 7.7 g/dL (6.4-8.2)
[2020-11-28 12:27] LABS: Thyroid Stimulating Hormone 0.484 uIU/mL (0.360-4.800)
== END ==
LOC: LAB 10:36 → LAB SHORT 10:36
PROVIDERS: Physician Assistant Medical
DX: E03.8 Other specified hypothyroidism (principal)
CPT/HCPCS: 36415; 80053; 84443; 85025

== ENCOUNTER 2021-03-04 18:13 | Emergency (ER) | payer MEDICARE, OTHER ==
[~2021-03-04] VITALS: Ht 182.9 cm; Wt 82.5 kg
[2021-03-04 19:42] LABS: BASOPHILS ABSOLUTE AUTO 0.02 K/mm3 (0.00-0.23); BASOPHILS PERCENT AUTO 0 % (0-2); EOSINOPHILS ABSOLUTE AUTO 0.11 K/mm3 (0.00-0.68); EOSINOPHILS PERCENT AUTO 2 % (0-6); Hemoglobin 13.7 g/dL (11.5-16.0); IMMATURE GRAN ABSOLUTE AUTO 0.03 K/mm3 (0.00-0.10); IMMATURE GRAN PERCENT AUTO 0 % (0-1); LYMPHOCYTES ABSOLUTE AUTO 1.25 K/mm3 (0.84-5.20); LYMPHOCYTES PERCENT AUTO 18 % (21-46); MONOCYTES ABSOLUTE AUTO 0.57 K/mm3 (0.16-1.47); MONOCYTES PERCENT AUTO 8 % (4-13); Mean Corpuscular HGB Conc 32.6 g/dL (31.5-36.5); Mean Corpuscular Volume 92 fL (80-100); Mean Platelet Volume 9.7 fL (9.1-12.4); NEUTROPHILS ABSOLUTE AUTO 4.84 K/mm3 (1.96-9.15); NEUTROPHILS PERCENT AUTO 71 % (41-73); Platelet Count 178 K/mm3 (150-400); Red Blood Cell Count 4.56 M/mm3 (3.80-5.20); White Blood Cell Count 6.82 K/mm3 (4.00-11.30)
[2021-03-04 19:56] LABS: Alanine Aminotransfer (ALT/SGP 21 U/L (12-78); Albumin, Blood 2.9 g/dL (3.4-5.0); Albumin/Globulin Ratio 0.8 (0.8-1.8); Alk Phos 47 U/L (50-136); Anion Gap 5 mmol/L (6-16); Aspartate Aminotrans (AST/SGOT 19 U/L (12-37); Bilirubin, Total 0.5 mg/dL (0.1-1.0); Blood Urea Nitrogen 20 mg/dL (8-24); Bun/Creatinine Ratio 23.2 (12.0-20.0); CO2, Blood 27 mmol/L (21-32); Calcium, Blood 9.5 mg/dL (8.5-10.1); Chloride, Blood 108 mmol/L (98-108); Creatinine, Blood 0.86 mg/dL (0.40-1.00); Globulin, Blood 3.8 g/dL (2.2-4.0); Glomerular Filtration Rate >60 (60-); Glucose, Blood 137 mg/dL (70-99); Potassium, Blood 4.5 mmol/L (3.5-5.5); Sodium, Blood 140 mmol/L (136-145); Total Protein, Blood 6.7 g/dL (6.4-8.2)
[2021-03-04 20:02] LABS: Source, Urine Catheter
[2021-03-04 20:05] LABS: Appearance, Urine Clear (Clear); Bilirubin, Urine Neg (Neg); Blood, Urine Neg (Neg); Color, Urine Yellow (P-Yellow); Glucose Qualitative, Urine Neg (Neg); Ketones, Urine Neg (Neg); Leukocyte Esterase, Urine 1+ (Neg); Nitrite, Urine Neg (Neg); Protein, Urine 2+ (Neg); Urobilinogen, Urine NORM (Normal)
[2021-03-04 20:56] LABS: Red Blood Cells, Urine 0-2 /hpf (0-2)
[2021-03-04 20:57] LABS: Bacteria Rare /hpf; Renal Epithelial Few /hpf (0-Rare); Squamous Epithelial Cells Rare /hpf (Few)
[2021-03-04 20:59] LABS: Transitional Epithelial Cells Rare /hpf (0-Rare)
[2021-03-04] MEDS ORDERED: HIPREX1 G1 PO (21:34)
[2021-03-04] MEDS ORDERED: SOLIFENACIN SUC10 MG PO (21:35)
== END 2021-03-05 01:23 | disposition home or self-care (01) ==
LOC: ER 18:13
PROVIDERS: Emergency Medicine
DX: K58.0 Irritable bowel syndrome with diarrhea (principal); I10 Essential (primary) hypertension; E03.9 Hypothyroidism, unspecified; I48.91 Unspecified atrial fibrillation; Z88.0 Allergy status to penicillin; Z88.2 Allergy status to sulfonamides; Z91.040 Latex allergy status; Z79.899 Other long term (current) drug therapy
CPT/HCPCS: 36415; 74177; 80053; 81001; 83690; 85025; 87086; 99284-25; J7030; P9612; Q9967

== ENCOUNTER 2021-03-14 23:28 | Emergency (ER) | payer MEDICARE, OTHER ==
[~2021-03-14] VITALS: Ht 182.9 cm; Wt 82.5 kg
[~2021-03-14 23:28] MED LIST changes: +SOLIFENACIN SUC10 MG PO
[2021-03-15 02:20] LABS: Albumin, Blood 2.9 g/dL (3.4-5.0); Albumin/Globulin Ratio 0.8 (0.8-1.8); Bilirubin, Total 0.6 mg/dL (0.1-1.0); Bun/Creatinine Ratio 21.6 (12.0-20.0); Calcium, Blood 9.4 mg/dL (8.5-10.1); Creatinine, Blood 1.02 mg/dL (0.40-1.00); Globulin, Blood 3.5 g/dL (2.2-4.0); Potassium, Blood 4.1 mmol/L (3.5-5.5); Total Protein, Blood 6.4 g/dL (6.4-8.2)
[2021-03-15 02:22] LABS: BASOPHILS ABSOLUTE AUTO 0.01 K/mm3 (0.00-0.23); BASOPHILS PERCENT AUTO 0 % (0-2); EOSINOPHILS ABSOLUTE AUTO 0.03 K/mm3 (0.00-0.68); EOSINOPHILS PERCENT AUTO 0 % (0-6); Hemoglobin 13.1 g/dL (11.5-16.0); IMMATURE GRAN ABSOLUTE AUTO 0.02 K/mm3 (0.00-0.10); IMMATURE GRAN PERCENT AUTO 0 % (0-1); LYMPHOCYTES PERCENT AUTO 9 % (21-46); MONOCYTES ABSOLUTE AUTO 1.05 K/mm3 (0.16-1.47); MONOCYTES PERCENT AUTO 11 % (4-13); Mean Corpuscular HGB 30.2 pg (26.0-34.0); Mean Corpuscular HGB Conc 32.8 g/dL (31.5-36.5); Mean Corpuscular Volume 92 fL (80-100); Mean Platelet Volume 9.5 fL (9.1-12.4); NEUTROPHILS ABSOLUTE AUTO 7.55 K/mm3 (1.96-9.15); NEUTROPHILS PERCENT AUTO 80 % (41-73); Platelet Count 205 K/mm3 (150-400); RDW Standard Deviation 47.8 fL (35.1-46.3); Red Blood Cell Count 4.34 M/mm3 (3.80-5.20); White Blood Cell Count 9.46 K/mm3 (4.00-11.30)
== END 2021-03-15 04:54 | disposition home or self-care (01) ==
LOC: ER 23:28
PROVIDERS: Student in an Organized Health Care Education/Training Program
DX: K52.9 Noninfective gastroenteritis and colitis, unspecified (principal); I10 Essential (primary) hypertension; E03.9 Hypothyroidism, unspecified; I48.91 Unspecified atrial fibrillation; Z86.73 Personal history of transient ischemic attack (TIA), and cerebral infarction without residual deficits; Z88.0 Allergy status to penicillin; Z88.2 Allergy status to sulfonamides; Z91.040 Latex allergy status; Z88.6 Allergy status to analgesic agent; Z91.048 Other nonmedicinal substance allergy status; Z79.01 Long term (current) use of anticoagulants; Z79.899 Other long term (current) drug therapy
CPT/HCPCS: 74177; 80053; 83690; 85025; 96374; 99284; J1885; Q9967

== ENCOUNTER → 2021-05-27 | Outpatient (CLI) | payer MEDICARE, OTHER ==
[~2021-05-27] MED LIST changes: +CONSTULOSE10 GM/155 PO
== END ==
LOC: LAB 10:43
DX: N30.90 Cystitis, unspecified without hematuria (principal)
CPT/HCPCS: 87077; 87086; 87186

== ENCOUNTER → 2021-09-04 | Outpatient (CLI) | payer MEDICARE, OTHER | LOC: LAB 11:00 → LAB SHORT 11:00 | DX: N30.01 Acute cystitis with hematuria (principal) | CPT/HCPCS: 87077; 87086; 87186 ==

== ENCOUNTER 2021-12-16 03:17 | Inpatient (IN) | payer MEDICARE, OTHER ==
[~2021-12-16] VITALS: Ht 182.9 cm; Wt 86.0 kg
[2021-12-16 03:35] LABS: BASOPHILS ABSOLUTE AUTO 0.01 K/mm3 (0.00-0.23); BASOPHILS PERCENT AUTO 0 % (0-2); EOSINOPHILS ABSOLUTE AUTO 0.02 K/mm3 (0.00-0.68); EOSINOPHILS PERCENT AUTO 0 % (0-6); Hematocrit 41.4 % (33.0-51.0); Hemoglobin 13.5 g/dL (11.5-16.0); IMMATURE GRAN ABSOLUTE AUTO 0.02 K/mm3 (0.00-0.10); IMMATURE GRAN PERCENT AUTO 0 % (0-1); LYMPHOCYTES ABSOLUTE AUTO 0.59 K/mm3 (0.84-5.20); LYMPHOCYTES PERCENT AUTO 9 % (21-46); MONOCYTES ABSOLUTE AUTO 0.52 K/mm3 (0.16-1.47); MONOCYTES PERCENT AUTO 8 % (4-13); Mean Corpuscular HGB 30.3 pg (26.0-34.0); Mean Corpuscular HGB Conc 32.6 g/dL (31.5-36.5); Mean Corpuscular Volume 93 fL (80-100); Mean Platelet Volume 9.6 fL (9.1-12.4); NEUTROPHILS ABSOLUTE AUTO 5.23 K/mm3 (1.96-9.15); NEUTROPHILS PERCENT AUTO 82 % (41-73); Platelet Count 197 K/mm3 (150-400); RDW Coefficient Variation 13.7 % (11.7-14.2); RDW Standard Deviation 46.6 fL (35.1-46.3); Red Blood Cell Count 4.45 M/mm3 (3.80-5.20); White Blood Cell Count 6.39 K/mm3 (4.00-11.30)
[2021-12-16 04:01] LABS: Albumin, Blood 3.6 g/dL (3.4-5.0); Albumin/Globulin Ratio 0.9 (0.8-1.8); Bilirubin, Total 0.4 mg/dL (0.1-1.0); Bun/Creatinine Ratio 18.1 (12.0-20.0); Calcium, Blood 9.6 mg/dL (8.5-10.1); Creatinine, Blood 0.66 mg/dL (0.40-1.00); Globulin, Blood 3.8 g/dL (2.2-4.0); Potassium, Blood 4.3 mmol/L (3.5-5.5); Total Protein, Blood 7.4 g/dL (6.4-8.2)
[2021-12-16 08:14] LABS: International Normalized Ratio 2.67; Prothrombin Time Results 26.3 Sec (9.7-11.5)
--- NOTE | 2021-12-16 08:53 | NUR ---
ADMIT NOTE: REPORT RECEIVED FROM CHRISSY JOLLEY IN ER. PT ADMITTED TO 327 AT 0820. PT A/O X 4, STANDBY ASSIST W/WALKER TO BATHROOM. PT DENIED ABD PAIN AND NAUSEA AT THIS TIME. PT AMBULATED TO BATHROOM AND URINATED CLEAR DARK YELLOW URINE. PT UNABLE TO REMEMBER ALL OF HER CURRENT HOME MEDICATIONS SO A FAMILY MEMBER WILL BRING LIST. RECONCILED WHICH MEDICATIONS SHE REMEMBERS. PT ORIENTED TO /CALL LIGHT. PT SITTING IN CHAIR AT THIS TIME.
--- NOTE | 2021-12-16 10:12 | NUR ---
ATTEMPTED BY [address] RN'S TO PL[address] NG TUBE BUT MET RESISTENCE AND UNABLE TO PUSH THROUGH SINUS CAVITY. PT EVENTUALLY REQUESTED TO STOP ATTEMPTING TO PLACE THE NG TUBE. PT IS NOT VOMITING AT THIS TIME AND REPORTS SHE HAS NO ABD PAIN AT THIS TIME. DR. TUCKER NOTIFIED BY LEAVING A DETAILED MESSAGE ON CELL PHONE.
[2021-12-16] MEDS ORDERED: FLUTICASONE-SA1 EAC8 IH (14:26)
[2021-12-16] MEDS ORDERED: MECL25 PO (14:31)
[2021-12-16] MEDS ORDERED: FLUT1DIS2 INH (14:31)
--- NOTE | 2021-12-16 14:33 | NUR ---
DAUGHTER SKYE CALLED AND WENT OVER MEDICATION LIST. HOME MEDICATION LIST RECONCILED AND COMPLETED.
--- NOTE | 2021-12-16 16:17 | NUR ---
Upon receiving a referral for spiritual care, I visit pt. Pt tells me about her medical problems, her family (she is very proud of her dtrs who are living in [place]) and her career in education. Pt asks for prayer for her medical situation to resolve without surgery. I gladly provide prayer along those lines. Pt voices appreciation for the visit and shows signs of increased peace. I will continue to remain available to pt and family
--- NOTE | 2021-12-16 19:48 | NUR ---
SHIFT SUMMARY: PT A/O X 4, STANDBY ASSIST TO BATHROOM. PT PAIN AND NAUSEA HAS BEEN WELL CONTROLLED. NONE GIVEN ON THIS SHIFT.ABD IS DISTENDED, HYPOACTIVE BS IN 3 QUADS, PT REPORTS PASSING GAS. PT CONTINUES TO HAVE NS AT 100/ HR RUNNING AND TOLERATING WELL. PLEASANT AND COOPERATIVE WITH CARE.
--- NOTE | 2021-12-17 03:07 | NUR ---
SHIFT SUMMARY 86 YR F ADMITTED ON 12/16/21 FOR SMALL BOWEL OBSTRUCTION. FULL CODE. NO ACUTE CHANGES THIS SHIFT. PT HAS HAD NO C/O N/V OR PAIN. SHE HAS BEEN VERY PLEASANT AND COOPERATIVE WITH CARE. SHE WATCHED TV FOR AWHILE THEN WENT TO SLEEP AND SLEPT FOR MOST OF THE NIGHT.
[2021-12-17 05:51] LABS: BASOPHILS ABSOLUTE AUTO 0.01 K/mm3 (0.00-0.23); BASOPHILS PERCENT AUTO 0 % (0-2); EOSINOPHILS ABSOLUTE AUTO 0.05 K/mm3 (0.00-0.68); EOSINOPHILS PERCENT AUTO 1 % (0-6); Hemoglobin 11.5 g/dL (11.5-16.0); IMMATURE GRAN PERCENT AUTO 0 % (0-1); LYMPHOCYTES ABSOLUTE AUTO 0.95 K/mm3 (0.84-5.20); LYMPHOCYTES PERCENT AUTO 21 % (21-46); MONOCYTES ABSOLUTE AUTO 0.48 K/mm3 (0.16-1.47); MONOCYTES PERCENT AUTO 11 % (4-13); Mean Corpuscular HGB 30.4 pg (26.0-34.0); Mean Corpuscular HGB Conc 31.9 g/dL (31.5-36.5); Mean Corpuscular Volume 95 fL (80-100); Mean Platelet Volume 9.7 fL (9.1-12.4); NEUTROPHILS ABSOLUTE AUTO 3.03 K/mm3 (1.96-9.15); NEUTROPHILS PERCENT AUTO 67 % (41-73); Platelet Count 164 K/mm3 (150-400); RDW Coefficient Variation 14.1 % (11.7-14.2); RDW Standard Deviation 49.4 fL (35.1-46.3); Red Blood Cell Count 3.78 M/mm3 (3.80-5.20); White Blood Cell Count 4.52 K/mm3 (4.00-11.30)
[2021-12-17 06:03] LABS: Calcium, Blood 8.1 mg/dL (8.5-10.1); Creatinine, Blood 0.61 mg/dL (0.40-1.00); Potassium, Blood 3.9 mmol/L (3.5-5.5)
--- NOTE | 2021-12-18 04:25 | NUR ---
SHIFT SUMMARY 86 YR F ADMITTED ON 12/16/21 FOR SMALL BOWEL OBSTRUCTION. FULL CODE. PT WAS GIVEN DILAUDID FOR PAIN THIS SHIFT AND SHE STATES THAT SHE HAD A VERY BAD REACTION TO IT. SHE STAED THAT SHE WAS SEEING THINGS THAT WERE NOT THERE SUCH A DESK IN THE CORNER AND CANTRELL THAT SHE WAS PICKING OUT OF THE AIR. SHE DID NOT LIKE THE WAY IT MADE HER FEEL AND SHE DOES NOT WANT TO "EVER TAKE IT AGAIN". SHE WAS CONCERENED THAT SHE HAD OVERDOSED AND THIS NURSE ASSURED HER THAT SHE WAS NOT GIVEN ENOUGH TO ACTUALLY OVERDOSE. THE CHEMICAL PROCESSING EQUIPMENT REPAIRER AND NURSE SPENT TIME W/ THE PT LISTENING TO HER CONCERNS AND SHE WAS VERY THANKFUL FOR THAT. SHE DID STATE THAT SHE FELT MUCH BETTER THIS SHIFT AFTER HAVING SEVERAL VERY LARGE BOWEL MOVEMENTS DURING THE DAY.
--- NOTE | 2021-12-18 07:31 | NUR ---
on 12/17/21 @ 1715 PT WAS GIVEN 12.5 MG OF CARVEDILOL PER EMAR. PRIOR BP @ 0853 WAS 113/68 AND AFTER CARVEDILOL BP WAS 84/59 @ 1909. @ 2036 BP HAD GONE BACK UP TO 133/66.
--- NOTE | 2021-12-18 19:56 | NUR ---
SHIFT SUMMARY: PT A/O X 4 STANDBY ASSIST PLEASANT AND COOPERATIVE WITH CARE. PT CONTINUES TO HAVE BM'S TODAY. SHE IS TOLERATING FULL LIQUID DIET. WARFARIN STARTED TONIGHT. PT REPORTED NO PAIN OR NAUSEA TODAY EXCEPT MILD HEADACHE WHICH SHE REFUSED OFFER OF TYLENOL FOR. DIET ADVANCED TO MECH SOFT FOR BREAKFAST.
--- NOTE | 2021-12-19 04:24 | NUR ---
SQUIRT MACHINE OPERATOR SUMMARY: A&Ox4. PLEASANT AND COOPERATIVE WITH CARE. SBA FOR AMBULATION TO AND FROM BATHROOM DURING THE NIGHT. C/O HEADACHE AT BEDTIME AND REQUESTED ONE APAP TABLET. STOOLING AND VOIDING WITHOUT DIFFICULTY. VSS. WILL REPORT TO ONCOMING RN.
[2021-12-19 06:12] LABS: International Normalized Ratio 2.41; Prothrombin Time Results 23.9 Sec (9.7-11.5)
--- NOTE | 2021-12-19 12:04 | NUR ---
DOCTOR PHONE CALL: PT SEEN BY DR. LOPEZ, NO NEW ORDERS AT THIS TIME. POSSIBLE DISCHARGE HOME WITH FAMILY. DR. LOPEZ SUGGESTED FOR TABLEAU ANALYST TO CALL DR. TUCKER FOR CONFIRMATION ON POSSIBLE DISCHARGE HOME. PT HAVING BOWEL MOVEMENTS, EATING A REGULAR DIET, NO NAUSEA OR VOMITING.
--- NOTE | 2021-12-19 17:03 | NUR ---
PT EDUCATED ON CONTIUNING HOME MEDICATIONS, FOLLOW UP WITH PCP IN 1 WEEK, AND REFERRAL FROM PCP FOR GI DOCTOR. PT PERSONAL BELONGINGS PACKED BY DAUGHTER. PT ESCORTED BY DASHA CISNEROS VIA WHEELCHAIR TO THE LOBBY. PT TRANSPORTED HOME BY DAUGHTER. PT IV REMOVED WITHOUT DIFFICULTY AND CATHETER INTACTED BY AKANKSHA KATE PRIOR TO DC.
--- NOTE | 2021-12-19 17:13 | NUR ---
THIS COMMUNITY SERVICES MANAGER HAS REVIEWED AND AGREES WITH ALL ASSESSMENT AND NOTES BY SHOLA DOBBINS.
== END 2021-12-19 15:31 | disposition home or self-care (01) | DRG 389 ==
LOC: ER 03:17 → MEDS 06:38 → ERHOLD 06:38 → MEDS 08:28
PROVIDERS: Emergency Medicine; Internal Medicine; ADMIT Family Medicine
DX: K56.600 Partial intestinal obstruction, unspecified as to cause (principal); I48.20 Chronic atrial fibrillation, unspecified; I10 Essential (primary) hypertension; J44.1 Chronic obstructive pulmonary disease with (acute) exacerbation; E03.9 Hypothyroidism, unspecified; I48.91 Unspecified atrial fibrillation; I71.40 Abdominal aortic aneurysm, without rupture, unspecified; Z96.652 Presence of left artificial knee joint; R79.1 Abnormal coagulation profile; K58.9 Irritable bowel syndrome, unspecified; Z90.710 Acquired absence of both cervix and uterus; Z88.0 Allergy status to penicillin; Z88.8 Allergy status to other drugs, medicaments and biological substances; Z91.040 Latex allergy status; Z86.73 Personal history of transient ischemic attack (TIA), and cerebral infarction without residual deficits; Z98.890 Other specified postprocedural states; Z90.89 Acquired absence of other organs; Z90.49 Acquired absence of other specified parts of digestive tract
CPT/HCPCS: 36415; 74177; 74250; 80048; 80053; 83690; 85025; 85610; 94640; 94664; 94760; 96374-59; 96375; 99285-25; A9270; C9113; J1170; J2405; J2550; J3010; J7030; Q9967

== ENCOUNTER → 2022-02-26 | Outpatient (CLI) | payer MEDICARE, OTHER ==
[~2022-02-26] MED LIST changes: +FLUT1DIS2 INH; +FLUTICASONE-SA1 EAC8 IH; +MECL25 PO
[2022-02-26 13:54] LABS: Source, Urine Clean Catch
[2022-02-26 14:31] LABS: Appearance, Urine Clear (Clear); Bilirubin, Urine Neg (Neg); Blood, Urine Neg (Neg); Color, Urine Yellow (P-Yellow); Glucose Qualitative, Urine Neg (Neg); Ketones, Urine Neg (Neg); Leukocyte Esterase, Urine 1+ (Neg); Nitrite, Urine Neg (Neg); Protein, Urine 1+ (Neg); Urobilinogen, Urine NORM (Normal)
[2022-02-26 14:39] LABS: Bacteria Few /hpf; Red Blood Cells, Urine 0-2 /hpf (0-2); Squamous Epithelial Cells Few /hpf (Few)
== END | disposition home or self-care (01) ==
LOC: LAB SHORT 10:45
PROVIDERS: Student in an Organized Health Care Education/Training Program
DX: N32.81 Overactive bladder (principal); N39.41 Urge incontinence
CPT/HCPCS: 81001; 87086

== ENCOUNTER 2022-11-02 08:51 | Inpatient (IN) | payer MEDICARE, OTHER ==
[~2022-11-02] VITALS: Ht 182.9 cm; Wt 88.0 kg
[2022-11-02 10:05] LABS: BASOPHILS ABSOLUTE AUTO 0.02 K/mm3 (0.00-0.23); BASOPHILS PERCENT AUTO 0 % (0-2); EOSINOPHILS ABSOLUTE AUTO 0.05 K/mm3 (0.00-0.68); EOSINOPHILS PERCENT AUTO 1 % (0-6); Hematocrit 41.8 % (33.0-51.0); Hemoglobin 13.9 g/dL (11.5-16.0); IMMATURE GRAN ABSOLUTE AUTO 0.01 K/mm3 (0.00-0.10); IMMATURE GRAN PERCENT AUTO 0 % (0-1); LYMPHOCYTES ABSOLUTE AUTO 0.58 K/mm3 (0.84-5.20); LYMPHOCYTES PERCENT AUTO 9 % (21-46); MONOCYTES ABSOLUTE AUTO 0.63 K/mm3 (0.16-1.47); MONOCYTES PERCENT AUTO 9 % (4-13); Mean Corpuscular HGB 30.5 pg (26.0-34.0); Mean Corpuscular HGB Conc 33.3 g/dL (31.5-36.5); Mean Corpuscular Volume 92 fL (80-100); Mean Platelet Volume 9.7 fL (9.1-12.4); NEUTROPHILS ABSOLUTE AUTO 5.46 K/mm3 (1.96-9.15); NEUTROPHILS PERCENT AUTO 81 % (41-73); Platelet Count 211 K/mm3 (150-400); RDW Coefficient Variation 13.8 % (11.7-14.2); RDW Standard Deviation 47.4 fL (35.1-46.3); Red Blood Cell Count 4.55 M/mm3 (3.80-5.20); White Blood Cell Count 6.75 K/mm3 (4.00-11.30)
[2022-11-02 10:41] LABS: Albumin, Blood 3.6 g/dL (3.4-5.0); Bilirubin, Total 0.5 mg/dL (0.1-1.0); Bun/Creatinine Ratio 15.8 (12.0-20.0); Calcium, Blood 9.8 mg/dL (8.5-10.1); Creatinine, Blood 0.7 mg/dL (0.40-1.00); Globulin, Blood 3.6 g/dL (2.2-4.0); Potassium, Blood 4.2 mmol/L (3.5-5.5); Total Protein, Blood 7.2 g/dL (6.4-8.2)
[2022-11-02 14:33] LABS: International Normalized Ratio 2.18; Prothrombin Time Results 21.9 Sec (9.7-11.5)
[2022-11-02 15:00] VITALS: BP 149/83
[2022-11-02] MEDS ORDERED: WARF2.5 PO (17:03)
[2022-11-02] MEDS ORDERED: TURMERIC500 M2 PO (17:07)
[2022-11-02] MEDS ORDERED: METHENAMINE HIPP PO (17:07)
[2022-11-02 18:24] LABS: Source, Urine Clean Catch
[2022-11-02 18:28] LABS: Appearance, Urine Clear (Clear); Bilirubin, Urine Neg (Neg); Blood, Urine Neg (Neg); Color, Urine Yellow (P-Yellow); Glucose Qualitative, Urine Neg (Neg); Ketones, Urine Neg (Neg); Leukocyte Esterase, Urine Neg (Neg); Nitrite, Urine Neg (Neg); Protein, Urine 1+ (Neg); Urobilinogen, Urine NORM (Normal)
[2022-11-02 20:51] VITALS: BP 122/66
[2022-11-03 04:11] VITALS: BP 117/68
--- NOTE | 2022-11-03 04:28 | NUR ---
PATIENT A/OX4, UP WITH 1 ASSIST TO BSC. REPORTS PAIN IS CONTROLLED AND DENIES ANY NAUSEA. CURRENLY NPO. BOWEL TONES RARE. A-FIB ON TELE, RATE CONTROLLED. IV TO L AC WNL, FLUIDS RUNNING. PLEASANT AND COOPERATIVE, ABLE TO MAKE NEEDS KNOWN. PATIENT SLEPT WELL THIS SHIFT.
[2022-11-03 05:42] LABS: BASOPHILS ABSOLUTE AUTO 0.01 K/mm3 (0.00-0.23); BASOPHILS PERCENT AUTO 0 % (0-2); EOSINOPHILS ABSOLUTE AUTO 0.04 K/mm3 (0.00-0.68); EOSINOPHILS PERCENT AUTO 1 % (0-6); Hemoglobin 11.4 g/dL (11.5-16.0); IMMATURE GRAN PERCENT AUTO 0 % (0-1); LYMPHOCYTES ABSOLUTE AUTO 0.84 K/mm3 (0.84-5.20); LYMPHOCYTES PERCENT AUTO 26 % (21-46); MONOCYTES ABSOLUTE AUTO 0.44 K/mm3 (0.16-1.47); MONOCYTES PERCENT AUTO 14 % (4-13); Mean Corpuscular HGB 30.5 pg (26.0-34.0); Mean Corpuscular HGB Conc 32.6 g/dL (31.5-36.5); Mean Corpuscular Volume 94 fL (80-100); Mean Platelet Volume 9.7 fL (9.1-12.4); NEUTROPHILS ABSOLUTE AUTO 1.92 K/mm3 (1.96-9.15); NEUTROPHILS PERCENT AUTO 59 % (41-73); Platelet Count 158 K/mm3 (150-400); RDW Coefficient Variation 14.1 % (11.7-14.2); RDW Standard Deviation 48.5 fL (35.1-46.3); Red Blood Cell Count 3.74 M/mm3 (3.80-5.20); White Blood Cell Count 3.25 K/mm3 (4.00-11.30)
[2022-11-03 05:55] LABS: International Normalized Ratio 2.19
[2022-11-03 06:08] LABS: Albumin, Blood 2.7 g/dL (3.4-5.0); Anion Gap 3 mmol/L (6-16); Blood Urea Nitrogen 10 mg/dL (8-24); Bun/Creatinine Ratio 15.7 (12.0-20.0); CO2, Blood 28 mmol/L (21-32); Calcium, Blood 8.4 mg/dL (8.5-10.1); Chloride, Blood 112 mmol/L (98-108); Creatinine, Blood 0.64 mg/dL (0.40-1.00); Glomerular Filtration Rate 85 (60-); Glucose, Blood 97 mg/dL (70-99); Phosphorus, Blood 3.4 mg/dL (2.5-4.9); Potassium, Blood 4.3 mmol/L (3.5-5.5); Sodium, Blood 143 mmol/L (136-145)
[2022-11-03 07:07] VITALS: BP 123/82
[2022-11-03 11:09] LABS: Hematocrit 36.6 % (33.0-51.0); Hemoglobin 11.8 g/dL (11.5-16.0)
[2022-11-03 16:33] VITALS: BP 140/78
--- NOTE | 2022-11-03 16:36 | NUR ---
SHIFT SUMMARY PT AxOx4. PLEASANT AND COOPERATIVE WITH CARE. PT REPORTS PASSING SOME GAS THIS SHIFT, BUT STILL NO BM. DENIES NAUSEA/VOMITING. PT HAS BEEN UP IN CHAIR AND GONE FOR SHORT WALKS TO ENCOURAGE BM. PT STILL NPO. PT HAD ECHO TODAY. PER TELE, PT HAD SEVERAL PAUSES BETWEEN 2-3 SECONDS. PT WAS ASYMPTOMATIC AT THESE TIMES. MADE AWARE OF BEAT PAUSES. DAUGHTER IN ROOM TODAY FOR VISIT, UPDATED ON PLAN OF CARE. PT IS CURRENTLY RESTING IN HER BED WITH CALL LIGHT IN REACH. PT DENIES ANY NEEDS AT THIS TIME.
[2022-11-03 20:27] VITALS: BP 150/85
[2022-11-04 02:43] VITALS: BP 135/81
--- NOTE | 2022-11-04 04:58 | NUR ---
SHIFT SUMMARY PT A/OX4, USES BEDSIDE COMMODE WITH ONE PERSON ASSIST WITH FWW. PT COMPLAINED OF HEADACHE EARLY ON IN THE SHIFT, MEDICATED PER EMAR, AND PT STATES COMFORT HAS IMPROVED. CALM AND COOPERATIVE WITH CARE, ON ROOM AIR, NPO WITH FLUIDS RUNNING AT 75 ML/HR. TELE WITH AFIB. PT'S ABDOMEN IS TENDER TO THE TOUCH WITH BOWEL SOUNDS PRESENT. PT SLEPT WEEL T/O MOST OF THE NIGHT AND CALLS ALIYAH
[2022-11-04 05:11] LABS: BASOPHILS ABSOLUTE AUTO 0.01 K/mm3 (0.00-0.23); BASOPHILS PERCENT AUTO 0 % (0-2); EOSINOPHILS ABSOLUTE AUTO 0.05 K/mm3 (0.00-0.68); EOSINOPHILS PERCENT AUTO 2 % (0-6); Hemoglobin 11.5 g/dL (11.5-16.0); IMMATURE GRAN ABSOLUTE AUTO 0.01 K/mm3 (0.00-0.10); IMMATURE GRAN PERCENT AUTO 0 % (0-1); LYMPHOCYTES ABSOLUTE AUTO 0.76 K/mm3 (0.84-5.20); LYMPHOCYTES PERCENT AUTO 27 % (21-46); MONOCYTES ABSOLUTE AUTO 0.35 K/mm3 (0.16-1.47); MONOCYTES PERCENT AUTO 13 % (4-13); Mean Corpuscular HGB 30.4 pg (26.0-34.0); Mean Corpuscular HGB Conc 32.9 g/dL (31.5-36.5); Mean Corpuscular Volume 93 fL (80-100); Mean Platelet Volume 9.6 fL (9.1-12.4); NEUTROPHILS ABSOLUTE AUTO 1.62 K/mm3 (1.96-9.15); NEUTROPHILS PERCENT AUTO 58 % (41-73); Platelet Count 147 K/mm3 (150-400); RDW Coefficient Variation 13.7 % (11.7-14.2); RDW Standard Deviation 46.6 fL (35.1-46.3); Red Blood Cell Count 3.78 M/mm3 (3.80-5.20)
[2022-11-04 05:13] LABS: Albumin, Blood 2.8 g/dL (3.4-5.0); Bilirubin, Total 0.5 mg/dL (0.1-1.0); Bun/Creatinine Ratio 16.6 (12.0-20.0); Calcium, Blood 8.5 mg/dL (8.5-10.1); Creatinine, Blood 0.6 mg/dL (0.40-1.00); Globulin, Blood 2.9 g/dL (2.2-4.0); Total Protein, Blood 5.7 g/dL (6.4-8.2)
[2022-11-04 05:15] LABS: International Normalized Ratio 1.86; Prothrombin Time Results 18.9 Sec (9.7-11.5)
[2022-11-04 07:11] VITALS: BP 155/72
--- NOTE | 2022-11-04 09:34 | NUR ---
START OF SHIFT THIS NURSE ASSUMED CARE OF PATIENT AT 0715. PT VOICED HAVING A HEADACHE. PT AMBULATED TO BEDSIDE COMMODE. PT A&O X4. PT BED LOCKED AND IN LOW POSITION, ROOM FREE OF DEBRIS. PT LEFT IN A POSITION OF SAFETY AND COMFORT WITH CALL LIGHT WITHIN REACH.
--- NOTE | 2022-11-04 09:42 | NUR ---
PT TAKEN TO IMAGING VIA W/C AROUND [id number]
--- NOTE | 2022-11-04 09:43 | NUR ---
PT RETURNED TO UNIT VIA W/C AROUND 0940, ASSISTED INTO BED. PT LEFT IN A POSITION OF COMFORT AND SAFETY.
--- NOTE | 2022-11-04 10:58 | NUR ---
PT AMBULATED TO THE COMMODE AND WAS CONTINENT OF BOWEL. SHE HAD AN EXTRA LARGE BM, LIQUID VOLUME INCLUDING FORMED PIECES OVER 900MLS. PT HAD FORMED PIECES ALONG WITH LIQUID BOWELS, AND 'OILY' YELLOW RESIDUE FLOATING ON TOP.
--- NOTE | 2022-11-04 13:05 | NUR ---
DR MENDOZA CALLED, REQUESTED PT BE ADVANCED TO A CLEAR LIQUID DIET FOLLOWING X-RAY RESULTS. RECEIVED A VERBAL ORDER TO CHANGE PT TO A CLEAR DIET FROM NPO.
--- NOTE | 2022-11-04 15:09 | NUR ---
PT TOLERATING CLEAR LIQUIDS WITHOUT COMPLAINTS. NO COMPLAINT OF ABDOMINAL DISCOMFORT.
--- NOTE | 2022-11-04 16:34 | NUR ---
REPORT GIVEN TO SHOLA SOLIS ON PT AROUND 1600, PT TRANSPORTED TO ROOM 355. ALL BELONGINGS OUT OF ROOM. PT ORIENTED TO NEW ROOM. PT LEFT IN A POSITION OF SAFETY AND COMFORT.
--- NOTE | 2022-11-04 18:32 | NUR ---
PT MOVED FROM 353 SHE IS RESTING WELL IN BED, NADN. SHE DENIES NEEDS. CALL LIGHT WITHIN REACH.
[2022-11-04 19:26] VITALS: BP 140/88
[2022-11-05 02:31] VITALS: BP 152/87
[2022-11-05 05:02] LABS: BASOPHILS ABSOLUTE AUTO 0.01 K/mm3 (0.00-0.23); BASOPHILS PERCENT AUTO 0 % (0-2); EOSINOPHILS ABSOLUTE AUTO 0.07 K/mm3 (0.00-0.68); EOSINOPHILS PERCENT AUTO 2 % (0-6); Hematocrit 37.4 % (33.0-51.0); Hemoglobin 12.4 g/dL (11.5-16.0); IMMATURE GRAN ABSOLUTE AUTO 0.01 K/mm3 (0.00-0.10); IMMATURE GRAN PERCENT AUTO 0 % (0-1); LYMPHOCYTES ABSOLUTE AUTO 0.85 K/mm3 (0.84-5.20); LYMPHOCYTES PERCENT AUTO 26 % (21-46); MONOCYTES ABSOLUTE AUTO 0.43 K/mm3 (0.16-1.47); MONOCYTES PERCENT AUTO 13 % (4-13); Mean Corpuscular HGB Conc 33.2 g/dL (31.5-36.5); Mean Corpuscular Volume 91 fL (80-100); Mean Platelet Volume 9.6 fL (9.1-12.4); NEUTROPHILS ABSOLUTE AUTO 1.89 K/mm3 (1.96-9.15); NEUTROPHILS PERCENT AUTO 58 % (41-73); Platelet Count 174 K/mm3 (150-400); RDW Coefficient Variation 13.4 % (11.7-14.2); RDW Standard Deviation 44.7 fL (35.1-46.3); Red Blood Cell Count 4.13 M/mm3 (3.80-5.20); White Blood Cell Count 3.26 K/mm3 (4.00-11.30)
[2022-11-05 05:23] LABS: Albumin, Blood 3.1 g/dL (3.4-5.0); Albumin/Globulin Ratio 0.9 (0.8-1.8); Bilirubin, Total 0.5 mg/dL (0.1-1.0); Bun/Creatinine Ratio 16.9 (12.0-20.0); Calcium, Blood 8.9 mg/dL (8.5-10.1); Creatinine, Blood 0.59 mg/dL (0.40-1.00); Globulin, Blood 3.3 g/dL (2.2-4.0); Potassium, Blood 3.5 mmol/L (3.5-5.5); Total Protein, Blood 6.4 g/dL (6.4-8.2)
--- NOTE | 2022-11-05 06:37 | NUR ---
Shift Summary Pt feeling much better after her reported very large bowel movement yesterday. She had a few small, loose liquid stools tonight. She is tolerating her full liquid diet well. Pt is hypertensive and feeling dizzy, will ask day RN to request restarting home BP meds and home antivert. Pt AOx4, 1 assist to BSC, cooperative with care. Slept well t/o most of the night.
[2022-11-05 07:25] VITALS: BP 149/78
[2022-11-05 09:36] LABS: International Normalized Ratio 1.65; Prothrombin Time Results 16.8 Sec (9.7-11.5)
--- NOTE | 2022-11-05 13:17 | NUR ---
Upon receiving a referral for spiritual care, I visited the patient. Patient is lying in bed and alert. She immediately engages well in conversation and is very pleasant. She is knowledgable about many topics and views people with a high degree of dignity and respect. She deflects being the subject of the conversation but flourishes in as she highlights the strengths in others. She shares her concerns for access to medical care for those who d/c from the hospital and living with housing insecurity, or are forced into our local SNF's declaring that they are not taking exceptional care of those to them from the hospital. She talks about the wonderful support that she receives from her two dtrs. I provide therapeutic listening, gentle educational guidance counselor and prayer. Patient responds well and shows signs of an elevated mood.
[2022-11-05 15:42] VITALS: BP 170/76
--- NOTE | 2022-11-05 15:59 | NUR ---
ORTHOSTATICS, SECOND ROUND CALLED TO DR MEJIA LAYING 170/76, HR 75, SITTING 181/97 HR 85, STANDING 153/88 HR 87. PATIENT REPORTS SOME CONTINUED DIZZINESS UPON STANDING AND WALKING , BETTER THAN THIS MORNING BUT STATES SHE NORMALLY IS NOT DIZZY WITH WALKING LONG SHE HAS HER MECLIZINE.
[2022-11-05 16:59] VITALS: BP 144/80
--- NOTE | 2022-11-05 18:50 | NUR ---
SHIFT SUMMARY PATIENT WITH SOME DIZZINESS UPON STANDING TODAY, DECREASED WITH MECLIZINE. TOLERATING ADVANCING DIET THIS EVENING TO MECHANICAL SOFT. ORTHOSTATICS WITH LOWER PRESSURE STANDINGX2. MD AWARE. BED IN LOW POSITION, CALL LIGHT IN REACH. PATIENT CALLS APPROPRIATELY.
[2022-11-05 19:53] VITALS: BP 151/89
--- NOTE | 2022-11-06 04:17 | NUR ---
SHIFT SUMMARY PT. OF PLEASANT AFFECT. ALERT AND ORIENTED TO PERSON, PLACE, SITUATION. PT. IS ABLE TO MAKE HER NEEDS KNOW, USES CALL LIGHT APPROPRIATELY. PT. WAS ABLE TO REST, EVEN AND UNLABORED RESPIRATIONS NOTED UPON ROUNDS. PT. DENIES CHEST PAIN, SOB. PT. STATES THAT DAUGHTER WILL BE DOWN TOMORROW FOR WHEN SHE GETS DISCHARGED. FWW AND GAITBELT USED DURING TRANSFERS TO THE RESTROOM. BED IS IN THE LOWEST POSITION AND CALL LIGHT IS WITHIN REACH.
[2022-11-06 05:27] LABS: International Normalized Ratio 1.46
[2022-11-06 05:51] VITALS: BP 158/95
[2022-11-06 07:35] VITALS: BP 168/98
== END 2022-11-06 14:39 | disposition home health service (06) | DRG 389 ==
LOC: ER 08:51 → MEDS 13:13
PROVIDERS: Emergency Medicine; Family Medicine; ADMIT Internal Medicine
DX: K56.609 Unspecified intestinal obstruction, unspecified as to partial versus complete obstruction (principal); I48.20 Chronic atrial fibrillation, unspecified; K50.90 Crohn's disease, unspecified, without complications; I10 Essential (primary) hypertension; E03.9 Hypothyroidism, unspecified; K52.9 Noninfective gastroenteritis and colitis, unspecified; I45.5 Other specified heart block; I95.1 Orthostatic hypotension; Z96.652 Presence of left artificial knee joint; Z90.89 Acquired absence of other organs; Z90.710 Acquired absence of both cervix and uterus; Z98.890 Other specified postprocedural states; Z88.0 Allergy status to penicillin; Z88.5 Allergy status to narcotic agent; Z91.040 Latex allergy status; Z79.890 Hormone replacement therapy; Z79.01 Long term (current) use of anticoagulants; Z79.899 Other long term (current) drug therapy; Z86.73 Personal history of transient ischemic attack (TIA), and cerebral infarction without residual deficits; Z87.19 Personal history of other diseases of the digestive system; Z90.49 Acquired absence of other specified parts of digestive tract
CPT/HCPCS: 36415; 74177; 74250; 80053; 80069; 83690; 83735; 84443; 85014; 85018; 85025; 85610; 93005; 93010; 93306; 96361; 96374-59; 97110; 97116; 97162; 97166; 97530; 97535; 99285-25; A9270; J1650; J2405; J7030; J7120; Q9967

== ENCOUNTER → 2023-10-14 | Outpatient (CLI) | payer MEDICARE, OTHER ==
[~2023-10-14] MED LIST changes: +METHENAMINE HIPP PO; +TURMERIC500 M2 PO
[2023-10-14 13:10] LABS: Appearance, Urine Clear (Clear); Bilirubin, Urine Neg (Neg); Blood, Urine 1+ (Neg); Color, Urine Yellow (P-Yellow); Glucose Qualitative, Urine Neg (Neg); Ketones, Urine Neg (Neg); Leukocyte Esterase, Urine 1+ (Neg); Nitrite, Urine Neg (Neg); Protein, Urine 2+ (Neg); Source, Urine Voided; Specific Gravity, Urine 1.015 (1.003-1.022); Urobilinogen, Urine NORM (Normal)
[2023-10-14 13:20] LABS: BASOPHILS ABSOLUTE AUTO 0.02 K/mm3 (0.00-0.23); BASOPHILS PERCENT AUTO 1 % (0-2); EOSINOPHILS ABSOLUTE AUTO 0.06 K/mm3 (0.00-0.68); EOSINOPHILS PERCENT AUTO 2 % (0-6); Hematocrit 35.9 % (33.0-51.0); Hemoglobin 11.7 g/dL (11.5-16.0); IMMATURE GRAN ABSOLUTE AUTO 0.01 K/mm3 (0.00-0.10); IMMATURE GRAN PERCENT AUTO 0 % (0-1); LYMPHOCYTES ABSOLUTE AUTO 0.67 K/mm3 (0.84-5.20); LYMPHOCYTES PERCENT AUTO 20 % (21-46); MONOCYTES ABSOLUTE AUTO 0.42 K/mm3 (0.16-1.47); MONOCYTES PERCENT AUTO 12 % (4-13); Mean Corpuscular HGB 29.5 pg (26.0-34.0); Mean Corpuscular HGB Conc 32.6 g/dL (31.5-36.5); Mean Corpuscular Volume 91 fL (80-100); NEUTROPHILS ABSOLUTE AUTO 2.23 K/mm3 (1.96-9.15); NEUTROPHILS PERCENT AUTO 65 % (41-73); Platelet Count 174 K/mm3 (150-400); RDW Coefficient Variation 14.6 % (11.7-14.2); RDW Standard Deviation 48.4 fL (35.1-46.3); Red Blood Cell Count 3.96 M/mm3 (3.80-5.20); White Blood Cell Count 3.41 K/mm3 (4.00-11.30)
[2023-10-14 13:24] LABS: Bacteria Few /hpf; Calcium Oxalate Crystals Rare /hpf; Red Blood Cells, Urine 0-2 /hpf (0-2); Squamous Epithelial Cells Few /hpf (Few); Transitional Epithelial Cells Rare /hpf (0-Rare)
[2023-10-14 13:59] LABS: Alanine Aminotransfer (ALT/SGP 13 U/L (12-78); Albumin, Blood 3.3 g/dL (3.4-5.0); Alk Phos 60 U/L (50-136); Anion Gap 8 mmol/L (3-11); Aspartate Aminotrans (AST/SGOT 15 U/L (12-37); Bilirubin, Total 0.4 mg/dL (0.1-1.0); Blood Urea Nitrogen 11 mg/dL (8-24); Bun/Creatinine Ratio 18.5 (12.0-20.0); CHOL/HDL RATIO 4.7; CO2, Blood 27 mmol/L (21-32); Chloride, Blood 109 mmol/L (98-108); Cholesterol 192 mg/dL (50-200); Globulin, Blood 3.3 g/dL (2.2-4.0); Glomerular Filtration Rate 86 (60-); Glucose, Blood 132 mg/dL (70-99); HDL Cholesterol 41 mg/dL (>39); Low Density Lipoprotein Chol 124 mg/dL (0-110); Potassium, Blood 3.8 mmol/L (3.5-5.5); Sodium, Blood 140 mmol/L (136-145); Total Protein, Blood 6.6 g/dL (6.4-8.2); Triglycerides 134 mg/dL (30-160); Very Low Density Lipoprot Chol 26 mg/dL (6-32)
== END | disposition home or self-care (01) ==
LOC: LAB SHORT 08:37
PROVIDERS: Student in an Organized Health Care Education/Training Program
DX: E78.2 Mixed hyperlipidemia (principal); F43.21 Adjustment disorder with depressed mood; I48.11 Longstanding persistent atrial fibrillation; K58.0 Irritable bowel syndrome with diarrhea; L30.9 Dermatitis, unspecified; R41.0 Disorientation, unspecified
CPT/HCPCS: 80053; 80061; 81001; 84443; 85025; 87086

== ENCOUNTER → 2024-02-02 | Outpatient (CLI) | payer MEDICARE, OTHER ==
[2024-02-02 13:07] LABS: Source, Urine Clean Catch
[2024-02-02 15:12] LABS: Appearance, Urine Hazy (Clear); Bilirubin, Urine Neg (Neg); Blood, Urine 1+ (Neg); Color, Urine Yellow (P-Yellow); Glucose Qualitative, Urine Neg (Neg); Ketones, Urine Neg (Neg); Leukocyte Esterase, Urine Neg (Neg); Nitrite, Urine Neg (Neg); Protein, Urine 2+ (Neg); Specific Gravity, Urine 1.015 (1.003-1.022); Urobilinogen, Urine NORM (Normal)
[2024-02-02 15:45] LABS: Calcium Oxalate Crystals Many /hpf; Mucus Light (0-Heavy); Red Blood Cells, Urine 0-2 /hpf (0-2); White Blood Cells, Urine 0-2 /hpf (0-5)
[2024-02-02 15:46] LABS: Bacteria Few /hpf; Squamous Epithelial Cells Mod /hpf (Few); Transitional Epithelial Cells Few /hpf (0-Rare)
== END ==
LOC: LAB SHORT 13:04 → LAB 13:04
PROVIDERS: Student in an Organized Health Care Education/Training Program
DX: D50.9 Iron deficiency anemia, unspecified (principal)
CPT/HCPCS: 81001

== ENCOUNTER → 2024-02-16 | Outpatient (CLI) | payer MEDICARE, OTHER ==
[2024-02-16 14:57] LABS: Stool Occult Bld Immuno 1 Positive (NEGATIVE)
== END | disposition home or self-care (01) ==
LOC: LAB 09:55 → LAB SHORT 09:55
PROVIDERS: Student in an Organized Health Care Education/Training Program
DX: D50.9 Iron deficiency anemia, unspecified (principal)
CPT/HCPCS: 82274